=== PATIENT | male | born 1965 | race Caucasian/White ===

== ENCOUNTER → 2020-11-08 | Outpatient (CLI) | payer BC ==
[~2020-11-08] MED LIST: METHOCARBAMOL750 MG PO; NORCO 5-325 TA1 EACH PO; NORCO 7.5-3251 EACH PO; SILDENAFIL20 MG PO; VOLTAREN EC 7575 MG PO
== END ==
LOC: KOH-I 15:00
DX: M25.562 Pain in left knee (principal)
CPT/HCPCS: 73562

== ENCOUNTER → 2021-02-12 | Outpatient (CLI) | payer OTHER | LOC: KOH-I 16:22 | DX: M54.5 Low back pain (principal); G89.29 Other chronic pain; M47.816 Spondylosis without myelopathy or radiculopathy, lumbar region | CPT/HCPCS: 72100 ==

== ENCOUNTER → 2021-12-06 | Outpatient (CLI) | payer BC | LOC: KOH-I 16:08 | DX: M79.641 Pain in right hand (principal); M25.521 Pain in right elbow | CPT/HCPCS: 73070; 73120 ==